=== PATIENT | male | born 1965 | race African-American/Black ===

== ENCOUNTER 2021-09-15 23:00 | Inpatient (IN) | payer BC, MEDICAID ==
[~2021-09-15] VITALS: Ht 177.8 cm; Wt 85.5 kg
[2021-09-15 23:35] LABS: BASOPHILS % 1.7 % (0.0-2.0); HEMATOCRIT. 37.7 % (42.0-52.0); HEMOGLOBIN. 12.4 g/dL (14.0-18.0); LYMPHOCYTES % 41.4 % (20.0-50.0); MEAN CORPUSCULAR HEMOGLOBIN 27.7 pg (28.0-32.0); MEAN CORPUSCULAR VOLUME 83.9 fL (80.0-94.0); MEAN PLATELET VOLUME 7.9 fl (7.4-10.4); MONOCYTES % 6.6 % (2.0-8.0); NEUTROPHILS % 49.3 % (40.0-76.0); PLATELET 321 x1000/uL (130-400); RED BLOOD CELL COUNT 4.49 mill/uL (4.7-6.1); RED CELL DISTRIBUTION WIDTH 14.6 % (11.6-14.6)
[2021-09-15 23:45] LABS: CLARITY URINE CLEAR (CLEAR); COLOR URINE YELLOW (YELLOW); KETONES URINE NEGATIVE (NEGATIVE); LEUKOCYTE ESTERASE URINE NEGATIVE (NEGATIVE); NITRITE URINE NEGATIVE (NEGATIVE); OCCULT BLOOD URINE TRACE (NEGATIVE); PROTEIN URINE 1+ (NEGATIVE); SPECIFIC GRAVITY URINE 1.006 (1.005-1.030); UROBILINOGEN URINE 0.2 E.U./dL (0.2-1.0)
[2021-09-15 23:51] LABS: CHLORIDE 109 mEq/L (98-107); ETHANOL BLOOD 228 mg/dL
[2021-09-16 00:01] LABS: *AMPHETAMINES SCREEN URINE NEGATIVE (NEGATIVE); *BARBITURATES SCREEN URINE NEGATIVE (NEGATIVE); *BENZODIAZEPINES SCREEN URINE NEGATIVE (NEGATIVE); *COCAINE SCREEN URINE NEGATIVE (NEGATIVE); CANNABINOID URINE SCREEN NEGATIVE (NEGATIVE); METHADONE URINE SCREEN NEGATIVE (NEGATIVE); OPIATES URINE SCREEN NEGATIVE (NEGATIVE); PHENCYCLIDINE URINE SCREEN NEGATIVE (NEGATIVE)
[2021-09-16] MEDS ORDERED: SIMV-43 PO (03:53)
[2021-09-16] MEDS ORDERED: PIOG30TA70 PO (03:53)
[2021-09-16] MEDS ORDERED: GLIM2TAB30 PO (03:53)
[2021-09-16] MEDS ORDERED: IBUP-2029 PO (03:53)
[2021-09-16] MEDS ORDERED: METF500T60 PO (03:53)
[2021-09-16 04:14] VITALS: BP 124/73
[2021-09-16] MEDS ORDERED: DEXTROSE 50% WATER 50ML SYRINGE IV PRN (05:00)
[2021-09-16] MEDS ORDERED: ACETAMINOPHEN 325MG TABLET PO PRN (05:15)
[2021-09-16] MEDS ORDERED: CLONIDINE 0.1MG TABLET PO PRN (05:15)
[2021-09-16] MEDS: BLOOD SUGAR DIAGNOSTIC STRIP TEST SCH ×3 (06:38→17:48)
[2021-09-16 08:00] VITALS: BP 151/73
[2021-09-16] MEDS: INSULIN LISPRO 100 UNITS/ML SUBCUT SCH ×3 (08:00→17:49)
[2021-09-16] MEDS ORDERED: ASPIRIN 81MG TABLET PO SCH (09:00)
[2021-09-16] MEDS ORDERED: ENOXAPARIN 40MG/0.4ML SYR SUBCUT SCH (09:00)
[2021-09-16 09:59] LABS: BASOPHILS % 0.9 % (0.0-2.0); EOSINOPHILS % 1.5 % (0.0-5.0); HEMATOCRIT. 38.6 % (42.0-52.0); HEMOGLOBIN. 12.6 g/dL (14.0-18.0); LYMPHOCYTES % 41.2 % (20.0-50.0); MEAN CORPUSCULAR HEMOGLOBIN 27.4 pg (28.0-32.0); MEAN CORPUSCULAR VOLUME 83.8 fL (80.0-94.0); MEAN PLATELET VOLUME 7.8 fl (7.4-10.4); MONOCYTES % 9.4 % (2.0-8.0); PLATELET 327 x1000/uL (130-400); RED BLOOD CELL COUNT 4.61 mill/uL (4.7-6.1); RED CELL DISTRIBUTION WIDTH 14.7 % (11.6-14.6)
[2021-09-16 10:14] LABS: CHLORIDE 111 mEq/L (98-107)
[2021-09-16 10:31] LABS: HDL CHOLESTEROL 72 mg/dL (40-59); LDL CHOLESTEROL 49 mg/dL (5-100)
[2021-09-16] MEDS ORDERED: THIAMINE HCL 100MG TABLET PO SCH (11:15)
[2021-09-16] MEDS ORDERED: MULTIVITAMINS,THER W-MINERALS TABLET PO SCH (11:15)
[2021-09-16] MEDS: FOLIC ACID 1MG TABLET PO SCH ×2 (11:21→12:06)
[2021-09-16 12:00] VITALS: BP 160/70
[2021-09-16] MEDS ORDERED: CHLORDIAZEPOXIDE 25MG CAPSULE PO SCH (14:00)
[2021-09-16 16:00] VITALS: BP 167/97
[2021-09-16] MEDS ORDERED: L25 PO (17:02)
[2021-09-16] MEDS ORDERED: LIP40 PO (17:02)
[2021-09-16] MEDS ORDERED: THIA100T72 PO (17:02)
[2021-09-16] MEDS ORDERED: FOLI-43 PO (17:02)
[2021-09-16] MEDS ORDERED: ASPI-1406 MT (17:02)
[2021-09-16] MEDS ORDERED: MULT-1146 MT (17:02)
[2021-09-16 17:42] VITALS: BP 142/53
[2021-09-16 17:57] VITALS: BP 142/89
[2021-09-16] MEDS ORDERED: ATORVASTATIN CALCIUM 40MG TABLET PO SCH (21:00)
[2021-09-17] MEDS ORDERED: CHLO25CA10 MT (07:44)
== END 2021-09-16 19:40 | disposition home or self-care (01) | DRG 42 ==
LOC: ER 23:37 → MICUSO 23:52 → 7WST 09-16 02:17
PROVIDERS: ADMIT Internal Medicine; ATTEND Internal Medicine
PROC: 0JBR0ZZ Excision of Left Foot Subcutaneous Tissue and Fascia, Open Approach (ICD-10-PCS; principal; 2021-09-16)
DX: G92.9 Unspecified toxic encephalopathy (principal); I10 Essential (primary) hypertension; D64.9 Anemia, unspecified; F10.229 Alcohol dependence with intoxication, unspecified; E78.5 Hyperlipidemia, unspecified; E66.9 Obesity, unspecified; F17.210 Nicotine dependence, cigarettes, uncomplicated; E11.628 Type 2 diabetes mellitus with other skin complications; Z79.84 Long term (current) use of oral hypoglycemic drugs; Z79.899 Other long term (current) drug therapy; Z79.4 Long term (current) use of insulin; Z71.3 Dietary counseling and surveillance; Z68.27 Body mass index [BMI] 27.0-27.9, adult; Z86.73 Personal history of transient ischemic attack (TIA), and cerebral infarction without residual deficits; Z71.6 Tobacco abuse counseling
CPT/HCPCS: 36415; 70496; 70498; 70551; 71045; 80048; 80053; 80061; 80305; 80320; 81003; 82962; 83036; 84443; 85025; 92523; 93005; 93306; 97162; 97166; 99285; J1650; G0480